=== PATIENT | male | born 1975 | race Caucasian/White ===

== ENCOUNTER 2020-01-11 02:20 | Emergency (ER) | payer BC ==
[~2020-01-11] VITALS: Ht 167.6 cm; Wt 90.7 kg
[~2020-01-11 02:20] MED LIST: ALLOPURINOL 10100 M2; AMOXICILLIN500 M1 PO; COLCHICINE; COLCHICINE 0.60.6 M1 PO; DARVOCET-N 1001 EACH PO; FLEXERIL PO; FLOMAX0.4 MG PO; HYDROCODON-ACE1 EAC1 PO; HYDROCODON-ACE1 EAC7; IBUPROFEN 800800 M1 PO; INDOCIN SR75 MG PO; INDOMETHACIN 2525 MG PO; INDOMETHACIN PO; MEDROL DOSPAK21 TAB PO; MEDROLDOSEPACK PO; NOHOMEMEDICATIONS; NORCO 5-325 TA1 EACH PO; ONDANSETRON HCL4 M2 PO; PENICILLIN VK500 M1 PO; PERCOCET 10-321 EACH PO; PREDNISONE 20 M20 M1 PO; PREDNISONE 20 M20 MG PO; PROMETHAZINE-D120 ML PO; ULTRAM 50MG TAB50 MG PO; VICODIN 5-5001 EACH PO; ZOFRAN ODT4 MG PO
[2020-01-11 02:25] VITALS: BP 130/89
[2020-01-11] MEDS ORDERED: PERCOCET 10-321 EAC1 PO (02:28)
[2020-01-11] MEDS ORDERED: PREDNISONE50 MG PO (02:55)
== END 2020-01-11 03:06 | disposition home or self-care (01) ==
LOC: M.ERS 02:20
DX: M54.16 Radiculopathy, lumbar region (principal); M10.9 Gout, unspecified; Z87.891 Personal history of nicotine dependence

== ENCOUNTER 2021-03-30 04:02 | Emergency (ER) | payer BC ==
[~2021-03-30] VITALS: Ht 167.6 cm; Wt 89.8 kg
[~2021-03-30 04:02] MED LIST changes: +PERCOCET 10-321 EAC1 PO; +PREDNISONE50 MG PO
[2021-03-30 04:47] LABS: ABSOLUTE BASOPHILS 0.1 thou/uL (0.0-0.2); ABSOLUTE EOSINOPHILS 0.2 thou/uL (0.0-0.7); ABSOLUTE LYMPHOCYTES 2.1 thou/uL (0.8-5.3); ABSOLUTE MONOCYTES 0.6 thou/uL (0.0-1.2); ABSOLUTE NEUTROPHILS 2.2 thou/uL (1.6-8.1); BASOPHILS 1.1 %; EOSINOPHILS 3.3 %; LYMPHOCYTES 41.9 %; MCH 32.6 pg (26.0-34.0); MCHC 35.6 g/dL (28.0-37.0); MCV 91.5 fL (80.0-100.0); MONOCYTES 10.9 %; MPV 7.7 fl. (7.2-11.1); NUCLEATED RBCS 0 /100WBC; PLATELET COUNT* 198 thou/uL (150-400); POLYS 42.8 %; RBC 4.59 mil/uL (4.50-6.00); WBC 5.1 thou/uL (4.0-11.0)
[2021-03-30 04:50] LABS: URINE BILIRUBIN NEGATIVE (Negative); URINE BLOOD NEGATIVE (Negative); URINE CLARITY CLEAR; URINE COLOR YELLOW; URINE GLUCOSE-RANDOM NEGATIVE (Negative); URINE KETONES NEGATIVE (Negative); URINE LEUKOCYTES-REFLEX NEGATIVE (Negative); URINE NITRITE-REFLEX NEGATIVE (Negative); URINE PROTEIN NEGATIVE (Negative); URINE UROBILINOGEN 0.2 E.U./dl (0.2-1.0)
[2021-03-30 04:58] LABS: CALCIUM 8.3 mg/dL (8.5-10.1); POTASSIUM 3.5 mmol/L (3.5-5.1)
[2021-03-30 05:02] LABS: ALBUMIN 3.6 g/dL (3.4-5.0); TOTAL BILIRUBIN 0.4 mg/dL (<0.1-1.0); TOTAL PROTEIN 8.2 g/dL (6.4-8.2)
[2021-03-30] MEDS ORDERED: ZOFRAN ODT4 MG PO (05:56)
[2021-03-30 06:05] VITALS: BP 123/80
--- NOTE | 2021-03-30 12:01 | EKG ---
[place] [address] ELECTROCARDIOGRAM REPORT Name: SUSSY REDDY I Room: 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: NEHA : 1975 Requested By: Lawanda Shelton Order Number: [id number] MD: Angel Torres Measurements Intervals [place] Rate: 72 P: 8 ND: 131 QRS: -1 QRSD: 92 T: 20 QT: 377 QTc: 413 Interpretive Statements Sinus rhythm Baseline wander in lead(s) V4 Compared to ECG 05/06/2017 19:30:06 No significant changes Electronically Signed On 03-30-2021 12:01:42 CDT by Angel Torres [email or web address] <ELECTRONICALLY SIGNED> By: Angel Torres MD, LOCATED [facility]IN [facility] 03/30/21 1201 0459 0459 Angel Torres MD, [facility]ATED [facility] /EPI
== END 2021-03-30 06:05 | disposition home or self-care (01) ==
LOC: M.ERS 04:02
PROVIDERS: Emergency Medicine
DX: R11.0 Nausea (principal); Z77.22 Contact with and (suspected) exposure to environmental tobacco smoke (acute) (chronic); Z87.442 Personal history of urinary calculi